=== PATIENT | female | born 1995 | race Two or more races ===

== ENCOUNTER → 2018-12-23 | Outpatient (CLI) | payer BC ==
--- NOTE | 2018-12-23 15:56 | KCIC ---
EXAM: Chest, 2 views. HISTORY: Preoperative evaluation. Pain. COMPARISON: None. FINDINGS: 2 views of the chest are obtained. There is no infiltrate, pleural effusion or pneumothorax. The heart is normal in size. IMPRESSION: No acute pulmonary finding. Electronically signed by: Phyllis Gaitan MD (12/23/2018 3:53 PM) [facility]
== END | disposition home or self-care (01) ==
LOC: KCIC 14:48
PROVIDERS: ATTEND Family Medicine
DX: Z01.818 Encounter for other preprocedural examination (principal); Z68.25 Body mass index [BMI] 25.0-25.9, adult; Z79.899 Other long term (current) drug therapy
CPT/HCPCS: 71046